=== PATIENT | male | born 1940 | race Asian ===

== ENCOUNTER 2024-07-25 15:42 | Inpatient (IN) | payer OTHER, BC ==
[2024-07-25] MEDS ORDERED: PANTOPRAZOLE SODIUM 40 MG VIAL ONE (17:13)
[2024-07-25 17:24] LABS: BASO % 0.5 % (0-2.0); EOS % 1.3 % (0-4.5); HEMATOCRIT 20.1 % (35.4-49); LYMPH % 21.8 % (8-40); MCH 26.2 pg (25.7-33.7); MEAN CELL VOLUME 87.2 fl (80-96); MEAN PLT VOLUME 8.8 fl (7.5-11.1); MONO % 7.6 % (3.8-10.2); NEUT % 68.8 % (42.8-82.8); PLATELET COUNT 466 10^3/uL (134-434); RBC 2.31 M/mm3 (4.00-5.60); RDW 16.8 % (11.9-15.9); WHITE BLOOD COUNT 13.3 K/mm3 (4.0-10.0)
[2024-07-25 17:32] LABS: INR 1.32 (0.83-1.09); PROTHROMBIN TIME (PATIENT) 14.8 SEC (9.7-13.0)
[2024-07-25 17:34] LABS: POTASSIUM 4.6 mmol/L (3.5-5.1)
[2024-07-25 17:35] LABS: ACTIVATED PTT 25.6 SECONDS (25.2-36.5)
[2024-07-25 17:37] LABS: CALCIUM 8.4 mg/dL (8.5-10.1)
[2024-07-25 17:38] LABS: ALBUMIN 2.6 g/dl (3.4-5.0); BLOOD UREA NITROGEN 49.8 mg/dL (7-18)
[2024-07-25 17:42] LABS: BILIRUBIN,TOTAL 0.4 mg/dL (0.2-1); TOT PROT 6.2 g/dl (6.4-8.2)
[2024-07-25] MEDS: PANTOPRAZOLE SODIUM 40 MG VIAL IVPUSH ONE (17:42)
[2024-07-25] MEDS: SODIUM CHLORIDE 1,000 ML IV STA (17:42)
[2024-07-25 17:46] LABS: LACTIC ACID 2.3 mmol/L (0.4-2.0)
[2024-07-25] MEDS: LATANOPROST 0.005% OPHTH SOLN 2.5ML BOTTLE OS SCH (22:28)
[2024-07-25] MEDS: INSULIN ASPART SLIDING SCALE (NOVOLOG) 1 VIAL SQ SCH (22:34)
[2024-07-25 23:02] LABS: EPI CELLS >36 /uL (0-25.1); HYALINE CASTS 4 /uL (0-3.1); PH,URINE 5.5 (5.0-8.0); URINE APPEARANCE CLOUDY; URINE BACTERIA 58 /uL (0-1359); URINE BILIRUBIN NEGATIVE (NEGATIVE); URINE COLOR YELLOW; URINE GLUCOSE (UA) NEGATIVE (NEGATIVE); URINE KETONE NEGATIVE (NEGATIVE); URINE LEUK ESTERASE 2+ (NEGATIVE); URINE NITRITE NEGATIVE (NEGATIVE); URINE PROTEIN TRACE (NEGATIVE); URINE RBC 1225 /uL (0-23.9); URINE WBC 85 /uL (0-25.8)
[2024-07-26] MEDS ORDERED: ONDANSETRON 4 MG TABLET PO PRN (00:49)
[2024-07-26] MEDS ORDERED: MAGNESIUM HYDROX 2400MG/30ML ORAL SUSPENSION 30 ML CUP PO PRN (00:49)
[2024-07-26] MEDS ORDERED: BISACODYL 10 MG SUPP.RECT RC PRN (00:49)
[2024-07-26] MEDS ORDERED: ACETAMINOPHEN INJECTION 100 ML ONE (00:50)
[2024-07-26] MEDS ORDERED: PANTOPRAZOLE SODIUM 40 MG/100 ML BAG IVPB ONE (00:50)
[2024-07-26] MEDS: PANTOPRAZOLE SODIUM 40 MG VIAL IVPUSH SCH (01:13)
[2024-07-26] MEDS: ACETAMINOPHEN 1000 MG/100 ML BAG IVPB ONE (01:13)
[2024-07-26] MEDS: CHLORHEXIDINE GLUCONATE 0.12% 15ML CUP MM SCH (03:45)
[2024-07-26 09:15] LABS: HEMATOCRIT 29.4 % (35.4-49); HEMOGLOBIN 9.7 GM/dL (11.7-16.9); MCH 27.3 pg (25.7-33.7); MCHC 32.8 g/dl (32.0-35.9); MEAN CELL VOLUME 83.3 fl (80-96); MEAN PLT VOLUME 8.8 fl (7.5-11.1); PLATELET COUNT 298 10^3/uL (134-434); RBC 3.54 M/mm3 (4.00-5.60); RDW 15.8 % (11.9-15.9); WHITE BLOOD COUNT 18.8 K/mm3 (4.0-10.0)
[2024-07-26 09:20] LABS: POTASSIUM 3.2 mmol/L (3.5-5.1)
[2024-07-26 09:35] LABS: ALBUMIN 2.4 g/dl (3.4-5.0); BLOOD UREA NITROGEN 40.2 mg/dL (7-18); CALCIUM 8.3 mg/dL (8.5-10.1)
[2024-07-26 09:38] LABS: CREATININE 1.8 mg/dL (0.55-1.3)
[2024-07-26 09:41] LABS: TOT PROT 5.5 g/dl (6.4-8.2)
[2024-07-26] MEDS ORDERED: PANTOPRAZOLE 40 MG TABLET PO SCH (10:00)
[2024-07-26] MEDS: DORZOLAMIDE HCL/TIMOLOL OPHTHALMIC SOLUTION 10 ML BOTTLE OU SCH (10:59)
[2024-07-26] MEDS: hydrALAZINE HCL 50 MG TABLET (FP) PO SCH (10:59)
[2024-07-26 11:08] LABS: MAGNESIUM 2.2 mg/dL (1.8-2.4)
[2024-07-26 11:12] LABS: PHOSPHOROUS 3.2 mg/dL (2.5-4.9)
[2024-07-26] MEDS: BACLOFEN 10 MG TABLET (FP) PO SCH (11:12)
[2024-07-26] MEDS: KCL 10 MEQ IVPB 10 MEQ/100 ML INFUS.BAG IVPB SCH (11:15)
[2024-07-26] MEDS ORDERED: CEFTRIAXONE 1 G/50 ML PREMIX 50 ML IVPB SCH (11:15)
[2024-07-26] MEDS ORDERED: hydrALAZINE HCL 20 MG/ML VIAL IM PRN (15:38)
[2024-07-26] MEDS: PIPERACILLIN/TAZOB 2.25 GM 2.25 GM/50 ML BAG IVPB SCH (16:39)
[2024-07-26] MEDS: SCOPOLAMINE HYDROBROMIDE 1 PATCH PATCH.TD72 TD SCH (16:40)
[2024-07-26] MEDS: ACETAMINOPHEN 1000 MG/100 ML BAG IVPB PRN (16:41)
[2024-07-26] MEDS: D5-1/2NS+10 MEQ KCL - 10 MEQ/1,000 ML INFUS.BAG IV SCH (16:47)
[2024-07-26] MEDS: LIDOCAINE 4% PATCH TP SCH (20:23)
[2024-07-26] MEDS: LIDOCAINE PATCH REMOVAL MC SCH (23:15)
[2024-07-27 09:51] LABS: POTASSIUM 3.2 mmol/L (3.5-5.1)
[2024-07-27 10:00] LABS: BASO % 0.2 % (0-2.0); EOS % 2.5 % (0-4.5); HEMATOCRIT 26.4 % (35.4-49); HEMOGLOBIN 8.5 GM/dL (11.7-16.9); LYMPH % 7.3 % (8-40); MCH 27.1 pg (25.7-33.7); MEAN CELL VOLUME 84.7 fl (80-96); MEAN PLT VOLUME 8.7 fl (7.5-11.1); MONO % 5.1 % (3.8-10.2); NEUT % 84.9 % (42.8-82.8); PLATELET COUNT 316 10^3/uL (134-434); RBC 3.12 M/mm3 (4.00-5.60); RDW 16.7 % (11.9-15.9); WHITE BLOOD COUNT 14.6 K/mm3 (4.0-10.0)
[2024-07-27 10:12] LABS: CALCIUM 7.8 mg/dL (8.5-10.1)
[2024-07-27 10:13] LABS: BLOOD UREA NITROGEN 28.3 mg/dL (7-18)
[2024-07-27 10:16] LABS: CREATININE 1.9 mg/dL (0.55-1.3)
[2024-07-27 13:32] LABS: MAGNESIUM 2.1 mg/dL (1.8-2.4)
[2024-07-27] MEDS: KCL 10 MEQ IVPB 10 MEQ/100 ML INFUS.BAG IVPB SCH (13:55)
[2024-07-27 17:00] VITALS: BMI 23.3
[2024-07-27] MEDS ORDERED: ALBUTEROL SO4 2.5/IPRATROPIUM 0.5 INH SOL 3 ML VIAL.NEB. NEB PRN (17:00)
[2024-07-27] MEDS: FUROSEMIDE 40 MG/4 ML INJECTABLE VIAL IVPUSH ONE (17:12)
[2024-07-27] MEDS: ACETAMINOPHEN 1000 MG/100 ML BAG IVPB PRN (17:13)
[2024-07-28 09:50] LABS: BASO % 0.5 % (0-2.0); EOS % 6.1 % (0-4.5); HEMATOCRIT 27.7 % (35.4-49); LYMPH % 17.2 % (8-40); MCH 27.8 pg (25.7-33.7); MCHC 32.5 g/dl (32.0-35.9); MEAN CELL VOLUME 85.4 fl (80-96); MEAN PLT VOLUME 8.8 fl (7.5-11.1); MONO % 6.8 % (3.8-10.2); NEUT % 69.4 % (42.8-82.8); PLATELET COUNT 343 10^3/uL (134-434); RBC 3.24 M/mm3 (4.00-5.60); RDW 17.3 % (11.9-15.9); WHITE BLOOD COUNT 14.4 K/mm3 (4.0-10.0)
[2024-07-28 10:05] LABS: POTASSIUM 3.8 mmol/L (3.5-5.1)
[2024-07-28 10:43] LABS: BLOOD UREA NITROGEN 21.5 mg/dL (7-18)
[2024-07-28 10:46] LABS: CALCIUM 7.9 mg/dL (8.5-10.1)
[2024-07-28] MEDS: FUROSEMIDE 40 MG/4 ML INJECTABLE VIAL IVPUSH ONE (11:46)
[2024-07-28] MEDS: SODIUM CHLORIDE 0.9% 1000 ML INFUS.BAG IV STA (12:23)
[2024-07-28] MEDS: SODIUM CHLORIDE 1,000 ML IV SCH (13:20)
[2024-07-28] MEDS: ACETAMINOPHEN 1000 MG/100 ML BAG IVPB ONE (23:43)
[2024-07-29 08:30] LABS: BASO % 0.9 % (0-2.0); EOS % 4.4 % (0-4.5); HEMATOCRIT 29.2 % (35.4-49); HEMOGLOBIN 9.5 GM/dL (11.7-16.9); LYMPH % 14.7 % (8-40); MCH 28.3 pg (25.7-33.7); MCHC 32.7 g/dl (32.0-35.9); MEAN CELL VOLUME 86.6 fl (80-96); MONO % 6.4 % (3.8-10.2); NEUT % 73.6 % (42.8-82.8); PLATELET COUNT 364 10^3/uL (134-434); RBC 3.38 M/mm3 (4.00-5.60); RDW 17.2 % (11.9-15.9); WHITE BLOOD COUNT 10.9 K/mm3 (4.0-10.0)
[2024-07-29 08:34] LABS: POTASSIUM 3.2 mmol/L (3.5-5.1)
[2024-07-29 08:47] LABS: CALCIUM 8.1 mg/dL (8.5-10.1)
[2024-07-29 08:48] LABS: BLOOD UREA NITROGEN 18.1 mg/dL (7-18)
[2024-07-29 08:51] LABS: CREATININE 2.1 mg/dL (0.55-1.3)
[2024-07-29] MEDS: ACETAMINOPHEN 1000 MG/100 ML BAG IVPB ONE (12:28)
[2024-07-29] MEDS: KCL 10 MEQ IVPB 10 MEQ/100 ML INFUS.BAG IVPB SCH (13:23)
[2024-07-29] MEDS: SODIUM CHLORIDE 1,000 ML IV SCH (13:23)
[2024-07-29] MEDS: GLYCOPYRROLATE 0.2 MG/1 ML VIAL IM STA (15:30)
[2024-07-29] MEDS: KCL 20 MEQ PREMIX BAG 20 MEQ/100 ML INFUS.BAG IVPB SCH (15:30)
[2024-07-29 19:47] VITALS: RESP 18
[2024-07-30] MEDS: METOPROLOL TARTRATE 25 MG TABLET (FP) PO SCH (08:53)
[2024-07-30 11:02] LABS: BASO % 0.9 % (0-2.0); EOS % 4.4 % (0-4.5); HEMATOCRIT 32.5 % (35.4-49); HEMOGLOBIN 10.4 GM/dL (11.7-16.9); LYMPH % 15.6 % (8-40); MCH 28.1 pg (25.7-33.7); MEAN CELL VOLUME 87.9 fl (80-96); MEAN PLT VOLUME 8.6 fl (7.5-11.1); MONO % 6.2 % (3.8-10.2); NEUT % 72.9 % (42.8-82.8); PLATELET COUNT 402 10^3/uL (134-434)
[2024-07-30 12:42] LABS: POTASSIUM 3.6 mmol/L (3.5-5.1)
[2024-07-30 12:56] LABS: CALCIUM 8.6 mg/dL (8.5-10.1)
[2024-07-30 12:57] LABS: BLOOD UREA NITROGEN 15.2 mg/dL (7-18)
[2024-07-30 13:00] LABS: CREATININE 1.7 mg/dL (0.55-1.3)
[2024-07-30 15:18] VITALS: BP 131/64; PULSE 83; TEMP 98.2
== END 2024-07-30 18:32 | DRG 871 ==
LOC: JER 15:42 → JERBED 19:21 → J7W 07-26 01:41 → OBSVTOIN 07-26 09:53 → J7W 07-26 11:05
PROVIDERS: ADMIT Internal Medicine; ATTEND Internal Medicine
PROC: 30233N1 Transfusion of Nonautologous Red Blood Cells into Peripheral Vein, Percutaneous Approach (ICD-10-PCS; principal; 2024-07-25)
DX: A41.9 Sepsis, unspecified organism (principal); G93.41 Metabolic encephalopathy; J69.0 Pneumonitis due to inhalation of food and vomit; K92.2 Gastrointestinal hemorrhage, unspecified; D62 Acute posthemorrhagic anemia; I69.354 Hemiplegia and hemiparesis following cerebral infarction affecting left non-dominant side; K92.0 Hematemesis; E87.6 Hypokalemia; E11.9 Type 2 diabetes mellitus without complications; E78.5 Hyperlipidemia, unspecified
CPT/HCPCS: 36415; 36430; 70450-TC; 71045-TC-FY; 74230-TC-FY; 80048; 80053; 81003; 82272; 82962; 83036; 83605; 83735; 84100; 85025; 85027; 85610; 85730; 86850; 86900; 86901; 86922; 92611-GN; 93005; 93010; 99285-25; G0378; J0131; J0475; P9058